=== PATIENT | female | born 1960 | race Caucasian/White ===

== ENCOUNTER → 2016-08-21 | Day surgery (SDC) | payer OTHER ==
[2016-08-21 07:44] LABS: HCT 45.2 % (37.0-47.0); HGB 15.2 g/dl (12.5-16.0); MCHC 33.6 g/dL (32.0-36.0); MCV 83.2 fL (78.0-100.0); MPV 8.2 fL (6.0-9.5); RBC 5.43 M/uL (4.20-5.40); RDW 13.5 % (11.5-14.0); WBC 9.7 K/uL (4.0-10.5)
[2016-08-21 08:16] LABS: ALBUMIN 4.3 g/dL (3.5-5.0); BILIRUBIN - TOTAL 0.7 mg/dL (0.1-1.0); CREATININE 0.7 mg/dL (0.5-1.0); GLOBULIN (CALCULATION) 3.6 g/dL (2.2-4.2); POTASSIUM 4.5 mmol/L (3.5-5.1); TOTAL PROTEIN 7.9 g/dL (6.4-8.3)
== END | disposition home or self-care (01) ==
LOC: FAS 07:08
PROVIDERS: Surgery
DX: Z12.11 Encounter for screening for malignant neoplasm of colon (principal); K51.418 Inflammatory polyps of colon with other complication; I10 Essential (primary) hypertension; F32.9 Major depressive disorder, single episode, unspecified; J32.9 Chronic sinusitis, unspecified; N95.0 Postmenopausal bleeding; J30.9 Allergic rhinitis, unspecified; Z88.0 Allergy status to penicillin
CPT/HCPCS: 36415; 80053; 88305; 88341; 88342; J2704

== ENCOUNTER 2020-09-02 10:34 | Day surgery (SDCO) | payer OTHER ==
[~2020-09-02] VITALS: Ht 170.2 cm; Wt 139.5 kg
[~2020-09-02 10:34] MED LIST: AMLODIPINE BESY10 MG PO; ASCORBIC ACID500 MG PO; BLACK ELDERBER1 EACH PO; DICLOFENAC SODI75 MG PO; GLUCOSAMINE1000 MG PO; LISINOPRIL-HCT1 EAC2 PO; MAGNESIUM100 MG PO; MELATONIN10 MG PO; METFORMIN HCL500 M3 PO; PROAIR HFA8.5 GM INH; TURMERIC 500 M1 EACH PO; VITAMIN E200 UNI1 PO
[2020-09-02 11:07] LABS: HCT 44.8 % (37.0-47.0); HGB 14.9 g/dl (12.5-16.0); MCH 28.6 pg (25.0-31.0); MCHC 33.3 g/dL (32.0-36.0); MPV 8.5 fL (6.0-9.5); RBC 5.21 M/uL (4.20-5.40); RDW 13.1 % (11.5-14.0); WBC 10.1 K/uL (4.0-10.5)
[2020-09-02 11:33] LABS: BUN/CREAT RATIO (CALC) 37.5 RATIO; CREATININE 0.64 mg/dL (0.51-0.95)
[2020-09-02] MEDS ORDERED: PERCOCET 5-3251 EACH PO (12:36)
[2020-09-03 04:06] LABS: BASOPHIL 0.3 % (0-2); EOSINOPHIL 0.1 % (0-5); HCT 44.1 % (37.0-47.0); HGB 14.5 g/dl (12.5-16.0); LYMPHOCYTE 10.3 % (15-48); MCH 28.5 pg (25.0-31.0); MCHC 32.9 g/dL (32.0-36.0); MCV 86.6 fL (78.0-100.0); MONOCYTE 5.4 % (0-12); MPV 8.4 fL (6.0-9.5); NEUTROPHIL 82.8 % (41-80); NRBC 0; PLT 240 K/uL (150-400); RBC 5.09 M/uL (4.20-5.40); RDW 12.8 % (11.5-14.0); WBC 14.9 K/uL (4.0-10.5)
[2020-09-03 04:29] LABS: ALBUMIN 3.4 g/dL (3.4-5.0); BILIRUBIN - TOTAL 0.5 mg/dL (0.2-1.0); CREATININE 0.63 mg/dL (0.51-0.95); GLOBULIN (CALCULATION) 4.3 g/dL; MAGNESIUM 1.8 mg/dL (1.8-2.4); TOTAL PROTEIN 7.7 g/dL (6.4-8.2)
[2020-09-03 04:32] LABS: PRO-BNP 112 pg/mL (<125)
--- NOTE | 2020-09-03 14:40 | NUR ---
PT. TO D/C HOME WITH NO NEEDS. PT. WAS ADMITTED FOR PAIN CONTROL AND LOW O2 STATS.
== END 2020-09-03 16:20 | disposition home or self-care (01) ==
LOC: FAS 10:34 → FTCU 16:25
PROVIDERS: Anesthesiology; Internal Medicine; ADMIT Legal Medicine
DX: M19.012 Primary osteoarthritis, left shoulder (principal); M75.102 Unspecified rotator cuff tear or rupture of left shoulder, not specified as traumatic; I10 Essential (primary) hypertension; E11.9 Type 2 diabetes mellitus without complications; J98.11 Atelectasis; Z88.0 Allergy status to penicillin
CPT/HCPCS: 36415; 36600; 71045; 80048; 80053; 82803; 82962; 83605; 83735; 83880; 84484; 85025; 93005; 94010; 94640; 94667; 94668; 94760; 94762; 97162; 97166; 97530-GP; 97535; C1713; C9113; G0378; J0171; J1170; J2250; J2704; J2795; J3010; J7120